=== PATIENT | female | born 1990 | race Caucasian/White ===

== ENCOUNTER → 2020-09-17 07:37 | Outpatient (CLI) | payer OTHER, SELFPAY ==
--- NOTE | 2020-09-17 | DI.NM.S_ITS ---
PROCEDURE: NM GASTRIC EMPTYING STUDY RADIOPHARMACEUTICAL: 1 mCi Tc-99m sulfur colloid in an egg sandwich. INDICATIONS: Unspecified abdominal pain TECHNIQUE: A Tc-99m labeled sulfur colloid labeled egg sandwich or oatmeal was served to the patient. Anterior and posterior planar images of the abdomen were obtained at 0 minutes and 30 minutes, then at hourly intervals up to 4 hours. The patient was upright and ambulating during the interval. COMPARISON: None. FINDINGS: The stomach has normal size, morphology, and position. There is normal emptying of solid gastric contents from the stomach by visual inspection. No gastroesophageal reflux is visualized. The percentage of tracer retained at specific time points are as follows: Time point Percent gastric retention Normal range 30 minutes 76 percent 70% or more 1 hour 51 percent 30% to 90% 2 hours 33 percent 60% or less 3 hours 3 percent 30% or less IMPRESSION: Normal gastric emptying study. Dictated by: Samson Dueñas M.D. on 09/17/2020 at 13:40 Approved by: Samson Dueñas M.D. on 09/17/2020 at 13:42
== END ==
PROVIDERS: PCP Family Medicine; Referring Provider Family Medicine; Visit Provider Family Medicine
DX: R10.9 Unspecified abdominal pain (principal); R14.0 Abdominal distension (gaseous)
CPT/HCPCS: 78264; A9541